=== PATIENT | male | born 1970 | race African-American/Black ===

== ENCOUNTER 2020-12-21 11:29 | Inpatient (IN) | payer OTHER ==
[~2020-12-21] VITALS: Ht 167.6 cm; Wt 128.8 kg
[~2020-12-21 11:29] MED LIST: ALPRAZOLAM1 MG PO; ASPIR 8181 M1 PO; ASPIRIN EC81 M1 PO; B COMPLEX-VITA1 EACH PO; BENADRYL25 MG PO; CALCITRIOL0.25 MCG PO; CALCIUM CARBO1000 MG PO; CELEBREX 200 M200 MG PO; CHROMIUM PICO400 MCG PO; COREG PO; GABAPENTIN100 MG PO; HYDROCODON-ACE1 EA11 PO; HYDROCODON-ACE1 EAC8 PO; LEVOTHYROXIN0.175 MG PO; LEVOXYL200 MCG PO; LIPITOR20 MG PO; LISINOPRIL2.5 MG PO; MIDODRINE HCL2.5 M1 PO; NIACINAMIDE100 MG PO; PERCOCET 5-3251 EACH PO; PERCOCET 7.5-31 EAC1 PO; PHENTERMINE 30 MG PO; PHOSLO667 MG PO; PROTONIX40 M2 PO; RENAGEL PO; RENAGEL400 MG PO; RENAGEL800 MG PO; RENVELA800 MG PO; RESTORIL30 MG PO; SENSIPAR90 MG PO; VITAMIN B-12500 MCG PO
[2020-12-21 12:38] VITALS: BP 110/61
[2020-12-21] MEDS ORDERED: LEVOXYL150 MCG PO (12:54)
[2020-12-21] MEDS ORDERED: WARFARIN SODIUM5 MG PO (12:54)
[2020-12-21] MEDS ORDERED: MIDODRINE HCL10 MG PO (12:55)
[2020-12-21] MEDS ORDERED: CALCIUM500 M1 PO (12:58)
[2020-12-21 13:15] LABS: HEMATOCRIT 24.3 % (42.0-52.0); MCH 30.8 pg (26.0-34.0); MCHC 33.1 g/dL (28.0-37.0); MCV 92.9 fL (80.0-100.0); RBC 2.61 mil/uL (4.50-6.00); RDW 16.9 % (10.5-14.5); WBC 8.9 thou/uL (4.0-11.0)
[2020-12-21 13:34] LABS: INR 1.36; PROTIME 14.6 Seconds (10.5-12.1)
[2020-12-21 18:37] VITALS: BP 122/59
[2020-12-21 18:41] VITALS: BP 122/59
[2020-12-21 20:30] VITALS: BP 100/40
--- NOTE | 2020-12-22 02:30 | NUR ---
PT ADMITTED TO THE UNIT FROM THE [facility] .PT HAD A TEMPORARY DIALYSIS CATHETER INSERTED IN RT FEMORAL VEIN FOR DIALYSIS.PT IS A/O X4.PT C/O OF PAIN ON KRAIG GROIN AREA AND PAIN MANAGED WITH OXYCODONE.PT HAD DIALYSIS YESTERDAY AND 2L TAKEN DOWN AND WILL HAVE ANOTHER DIALYSIS DURING THE DAY.PT NORMALY DIALYSE ON .KRAIG UA FISTULA MALFUNCTIONING.RT GROIN AREA DRESSINF I/C/D AND WITH NO TENDERNESS OR SWELLING.WILL CONTINUE TO MONITOR
[2020-12-22 06:20] LABS: CREATININE 14.6 mg/dL (0.7-1.3); POTASSIUM 4.2 mmol/L (3.5-5.1)
[2020-12-22 08:10] VITALS: BP 114/46
[2020-12-22 12:52] VITALS: BP 114/46
[2020-12-22 13:12] VITALS: BP 114/46
--- NOTE | 2020-12-22 13:26 | NUR ---
Pt Axox4 WITH NO C/O PAIN NOTED. BILATERAL UPPER EXTREMITIY FISTULAS MALFUCTIONING. NEW RIGHT FEMORAL FISTULA WORKING APPROPRIATELY. RECEIVED HEMODIALYSIS TODAY. NO URINE OUTPUT. tELEMETRY RUNNING SINUS RYTHYM WITH PVC'S. REMAINS ON ROOM AIR. IV in left FA is SL. Skin intact. Right groin is C/D/I. Fall precautions in place. Bed is in low position. Call light is within reach. Will monitor until end of shift.
[2020-12-22 15:50] VITALS: BP 93/51
--- NOTE | 2020-12-22 16:16 | NUR ---
PT ADMITTED RELATED TO SPEC/DIALYSIS CATH INSERTION. CM REVIEWED CHART AND SPOKE WITH CARE TEAM. CM MET WITH PT AT BEDSIDE THIS DAY. PT APPEARED TO BE A&O X4. CM ROLE INTRODUCED. PT INDICATED HE LIVES IN A HOUSE WITH HIS SON WITH NO STEPS TO ENTER AND NO STEPS INSIDE. 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 PT INDICATED NO HH HX. PT GOES TO [facility] MWF 5:30 CHAIR TIME. PT IS TO HAVE A NEW TUNNELED CATHETER PLACED TOMORROW. CM FOLLOWING REGARDIGN DC PLANNING.
[2020-12-22 19:47] VITALS: BP 104/55
--- NOTE | 2020-12-23 03:51 | NUR ---
PT PLACED ON C-DIFF PRECUATIONS DUE PT RECENT HISTORY OF DIARRHEA,SO FAR PT DENIES LOOSE OR LIQUIOD STOOL ,WAITING TO ABTAIN SAMPLE AND SEND TO LAB.
[2020-12-23 07:00] VITALS: BP 97/48
--- NOTE | 2020-12-23 11:51 | NUR ---
IT IS ANTICPATED THAT PT WILL BE MEDICALLY STABLE TO DC HOME THIS DAY AFTER TUNNELED DIALYSIS CATHETER IS PLACED AND DIALYSIS IS FINISHED. PT TO RESUME SERVICES AT [facility] MONDAY AND FOLLOW UP WITH HIS CARE TEAM AT [facility] FOR FUTURE VACSULAR ISSUES.
[2020-12-23 15:19] VITALS: BP 97/48
--- NOTE | 2020-12-23 15:29 | NUR ---
Pt has been npo all day waiting on catheter to come in so IR can place it and he can be discharged. He did receive hemodialysis. They took off 1.5 liters today. He has not urinated or had a BM. He sleep well last night and has been running SR with BBB occurance of PVCS. He has an IV in his left FA that is SL. Bed is in low position and fall precautions are in place. Call light is within reach. Will monitor until end of shift.
--- NOTE | 2020-12-23 16:11 | NUR ---
STILL WAITING ON TUNNELED DIALYSIS CATHETER TO BE PLACED OF THIS NOTE. DR. BIRCH HAD ORDERED SPECIAL CATHETER AND AWAITING DETERMINATION IF IT CAN BE PLACED BY NURSE. CARE TEAM HAD INDICATED THAT PT WOULD BE MEDICALLY STABLE TO DC HOME ONCE CATHETER IS PLACED. CM FOLLOWING REGARDING DC PLANNING.
[2020-12-23 17:12] VITALS: BP 147/64
[2020-12-23 19:38] VITALS: BP 121/86
[2020-12-23] MEDS ORDERED: LIPITOR 20 MG T20 M1 PO (21:47)
[2020-12-23] MEDS ORDERED: REQUIP 1 MG TABL1 M1 PO (21:50)
[2020-12-23] MEDS ORDERED: OXYBUTYNIN 5 MG5 M2 PO (21:50)
[2020-12-23] MEDS ORDERED: MUPIROCIN1 GM TOP (21:51)
[2020-12-23] MEDS ORDERED: TRIPLE ANTIBIOT28 G2 TOP (21:53)
--- NOTE | 2020-12-24 02:48 | NUR ---
PT IS A/O X4 AND IS UP AD JOSIE. PLEASANT AND COOPERATIVE. ROOM AIR. VSS AFEBRILE. MEDICATIONS GIVEN PER MAR. C/O INSOMNIA. PRN SLEEP MEDICATION GIVEN. C/O CONSTIPATION. PRUNE JUICE PROVIDED. CALL LIGHT IS WITHIN REACH. CALLS OUT APPROPRIATELY FOR ASSISTANCE.
[2020-12-24 11:03] VITALS: BP 98/47
[2020-12-24 11:09] VITALS: BP 98/47
--- NOTE | 2020-12-24 11:57 | NUR ---
Assumed pt care this am, received NPO. Awaiting for catheter for dialysis to be delivered for planned placement today. Called IR at 11:16 am , cat still not available. Will follow up.
--- NOTE | 2020-12-24 12:27 | NUR ---
CARE TEAM INDICATED THAT THEY ARE STILL AWAITING PT'S SPECIALIZED DIALYSIS CATHETER TO COME IN. PT STILL AWAITING TUNNELED DIALYSIS CATHETER. CM FOLLOWING DC PLANNING.
[2020-12-24 18:07] VITALS: BP 121/48
--- NOTE | 2020-12-25 02:57 | NUR ---
ASSUMED PT CARE AT 1925. PT IS ALERT AND ORIENTED X4. PT IS CALM AND COOPERATIVE. PT HAS TESIO TO THE R GROIN. PT IS UP AD JOSIE TO THE BR. VS ARE WITHIN NORMAL RANGE. PT IS TOLERATING RA. MED WERE GIVEN PER EMAR ORDERS. PT WAS INFORMED ABOUT BEING NPO AT MIDNIGHT AND PT VERBALIZED UNDERSTANDING. PT DID NOT EXPRESS ANY CONCERNS AND NO VISIBLE SIGN OF DISTRESS WAS NOTED. FALL PRECAUTIONS IN PLACE WITH CALL LIGHT WITHIN REACH. WILL CONTINUE TO MONITOR.
[2020-12-25 09:11] VITALS: BP 101/43
--- NOTE | 2020-12-25 11:57 | NUR ---
PT HAD TUNNELED CATHETER PLACE THIS AM. PT IS TO GET DIALYSIS HERE THIS DAY AND THEN DC HOME. PT TO RESUME OP HD AT [facility] MONDAY. CM FAXED CLINICAL INFO TO CLINIC. ANTICIPATE PT WILL DC HOME TO SELF CARE THIS DAY.
[2020-12-25 15:24] VITALS: BP 101/43
--- NOTE | 2020-12-25 17:26 | NUR ---
Assumed pt care this am vs stable. Dialysis Catheter placement completed mid am. Diet and medications are tolerated well. Started in the afternoon, once completed plan id for pt to dc. Will monitor, dialysis on going.
== END 2020-12-25 20:05 | disposition home or self-care (01) | DRG 673 ==
LOC: SPEC 11:29 → 4W 20:38
PROVIDERS: Hospitalist; Nurse Practitioner Family; ADMIT Internal Medicine; ATTEND Internal Medicine
PROC: 06H033Z Insertion of Infusion Device into Inferior Vena Cava, Percutaneous Approach (ICD-10-PCS; principal; 2020-12-21)
PROC: 5A1D70Z Performance of Urinary Filtration, Intermittent, Less than 6 Hours Per Day (ICD-10-PCS; principal; 2020-12-21)
PROC: 05JY0ZZ Inspection of Upper Vein, Open Approach (ICD-10-PCS; principal; 2020-12-21)
PROC: 5A1D70Z Performance of Urinary Filtration, Intermittent, Less than 6 Hours Per Day (ICD-10-PCS; 2020-12-22)
PROC: 5A1D70Z Performance of Urinary Filtration, Intermittent, Less than 6 Hours Per Day (ICD-10-PCS; 2020-12-23)
PROC: 0JH63XZ Insertion of Tunneled Vascular Access Device into Chest Subcutaneous Tissue and Fascia, Percutaneous Approach (ICD-10-PCS; 2020-12-25)
PROC: B549ZZA Ultrasonography of Inferior Vena Cava, Guidance (ICD-10-PCS; 2020-12-25)
PROC: 06PYX3Z Removal of Infusion Device from Lower Vein, External Approach (ICD-10-PCS; 2020-12-25)
PROC: 06H033Z Insertion of Infusion Device into Inferior Vena Cava, Percutaneous Approach (ICD-10-PCS; 2020-12-25)
PROC: B5191ZA Fluoroscopy of Inferior Vena Cava using Low Osmolar Contrast, Guidance (ICD-10-PCS; 2020-12-25)
PROC: 5A1D70Z Performance of Urinary Filtration, Intermittent, Less than 6 Hours Per Day (ICD-10-PCS; 2020-12-25)
DX: T82.41XA Breakdown (mechanical) of vascular dialysis catheter, initial encounter (principal); N18.6 End stage renal disease; I42.9 Cardiomyopathy, unspecified; M31.8 Other specified necrotizing vasculopathies; I50.22 Chronic systolic (congestive) heart failure; D68.59 Other primary thrombophilia; Z68.42 Body mass index [BMI] 45.0-49.9, adult; E66.9 Obesity, unspecified; K21.9 Gastro-esophageal reflux disease without esophagitis; E03.9 Hypothyroidism, unspecified; F41.9 Anxiety disorder, unspecified; E21.3 Hyperparathyroidism, unspecified; I95.1 Orthostatic hypotension; I73.9 Peripheral vascular disease, unspecified; Z99.2 Dependence on renal dialysis; Z88.0 Allergy status to penicillin; Z79.01 Long term (current) use of anticoagulants; Z79.82 Long term (current) use of aspirin; Z79.899 Other long term (current) drug therapy; Z83.3 Family history of diabetes mellitus; Z82.49 Family history of ischemic heart disease and other diseases of the circulatory system; Z91.19 Patient's noncompliance with other medical treatment and regimen; Z86.14 Personal history of Methicillin resistant Staphylococcus aureus infection
CPT/HCPCS: 10045; 32100

== ENCOUNTER → 2021-04-19 | Outpatient (CLI) | payer OTHER ==
[~2021-04-19] MED LIST changes: +CALCIUM500 M1 PO; +LEVOXYL150 MCG PO; +LIPITOR 20 MG T20 M1 PO; +MIDODRINE HCL10 MG PO; +MUPIROCIN1 GM TOP; +OXYBUTYNIN 5 MG5 M2 PO; +REQUIP 1 MG TABL1 M1 PO; +TRIPLE ANTIBIOT28 G2 TOP; +WARFARIN SODIUM5 MG PO
== END ==
LOC: HYPER 11:44
PROVIDERS: ATTEND Emergency Medicine
DX: L98.422 Non-pressure chronic ulcer of back with fat layer exposed (principal); E83.59 Other disorders of calcium metabolism; E03.9 Hypothyroidism, unspecified; F41.9 Anxiety disorder, unspecified; Z79.899 Other long term (current) drug therapy; Z79.01 Long term (current) use of anticoagulants; Z98.890 Other specified postprocedural states; Z99.2 Dependence on renal dialysis